=== PATIENT | male | born 1935 | race Caucasian/White ===

== ENCOUNTER 2023-09-08 12:21 | Emergency (ER) | payer MEDICARE, SELFPAY ==
[2023-09-08 12:38] VITALS: BP 113/54; PULSE 80; RESP 16; TEMP 36.8; O2SAT 98
--- NOTE | 2023-09-08 13:11 | ED.EAR ---
HPI - Ear Problem General Chief complaint: Ear Stated complaint: ear discomfort Time Seen by Provider: 09/08/23 13:00 Source: patient, RN notes reviewed and old records reviewed Mode of arrival: ambulatory Limitations: no limitations History of Present Illness HPI Narrative: 88-year-old male patient presents to [facility] with complaints of ears being called. Patient denies pain states she has can hear. MD Complaint: decreased hearing Related Data Home Medications Medication Instructions Recorded Confirmed acetaminophen 500 mg capsule 500 mg PO Q6H PRN 07/21/22 aspirin 81 mg tablet,delayed 81 mg PO DAILY 07/21/22 release (Adult Low Dose Aspirin) diphenhydramine HCl 25 mg tablet 25 mg PO QHS PRN 07/21/22 (Allergy Relief (diphenhydramine)) melatonin 5 mg capsule mg PO 07/21/22 methylcellulose (laxative) 500 mg 500 mg PO DAILY 07/21/22 tablet multivitamin (Daily Multi-Vitamin 1 tablet PO DAILY 07/21/22 tablet) Allergies Allergy/AdvReac Type Severity Reaction Status Date / Time No Known Allergies Allergy Verified 09/08/23 13:06 Review of Systems Constitutional: Constitutional: Reports no additional constitutional complaints Eyes: Eyes: Reports no additional eye complaints ENT: Reports as per HPI Comments: Ears blocked Cardiovascular: Cardiovascular: Reports no additional cardiovascular complaints Respiratory: Respiratory: Reports no additional respiratory complaints Neurologic: Reports system reviewed and no additional complaints, except as documented [facility] Past Medical History Medical History Allergies Arthritis BPH (benign prostatic hyperplasia) Diarrhea GERD (gastroesophageal reflux disease) Gout Hearing problem of both ears Hypertension Left shoulder pain Loss of hearing Osteoarthrosis Screening for prostate cancer Screening, lipid Surgical History Surgical History H/O colonoscopy 05/2022 H/O hernia repair Hx of tonsillectomy Family History Family History Father Cancer Mother Hypertension Cerebrovascular accident Social History Social History Smoking status: Never smoker Alcohol intake: never Substance use: never Living arrangements: with family Occupation/Education: retired Additional occupation/education comments: pharmacist Agree to blood products: Yes Comments At the time of my signature, I reviewed and agree with the nursing past medical, surgical, social, and family history. There is no relevant family history pertinent to the patient complaint. Exam Const: General: cooperative, healthy appearing, no acute distress and well nourished Nutritional Appearance: well nourished Orientation/consciousness: patient oriented x3 Limitations: no limitations HENMT: Head: normal to inspection and normocephalic Ears: external ears normal, TM's normal bilaterally, mastoids normal and Abnormal EAC present cerumen impaction ( left ear this cerumen impaction right ear clear) on the left Face/Nose/Sinus: normal facial exam Face and sinus: normal facial exam Mouth: Yes Normal oral and palatal mucosa present, Yes oropharynx normal and Yes moist mucous membranes Throat: posterior oropharynx normal, tonsils normal, uvula midline and no uvular edema Eyes: General: appearance normal, both eyes and all related structures Sclera: sclerae normal Pupils: Equal, round and reactive pupils present Resp: Effort & Inspection: normal respiratory effort, able to speak in complete sentences, no audible wheezes, no cough, no respiratory distress and no retractions Auscultation: clear to auscultation bilaterally, no crackles, no rales, no rhonchi and no wheezes Cardio: Rate: regular rate Rhythm: regular rhythm Skin: General
== END 2023-09-08 13:29 | disposition home or self-care (01) ==
PROVIDERS: Emergency Provider Registered Nurse; PCP Family Medicine
DX: H61.22 Impacted cerumen, left ear (principal); M19.90 Unspecified osteoarthritis, unspecified site; N40.0 Benign prostatic hyperplasia without lower urinary tract symptoms; K21.9 Gastro-esophageal reflux disease without esophagitis; M10.9 Gout, unspecified; I10 Essential (primary) hypertension; Z79.82 Long term (current) use of aspirin
CPT/HCPCS: 69209; 99212; G0463

== ENCOUNTER 2025-02-20 10:18 | Outpatient (CLI) | payer MEDICARE, SELFPAY ==
[2025-02-20 10:30] VITALS: PULSE 64; O2SAT 94
[2025-02-20 10:35] VITALS: PULSE 106; O2SAT 86
[2025-02-20 10:36] VITALS: PULSE 103; O2SAT 93
[2025-02-20 10:45] VITALS: PULSE 93; O2SAT 92
--- NOTE | 2025-02-20 11:58 | PCRCNOTE ---
Home O2 eval faxed to office, new o2 set up
--- NOTE | 2025-02-22 20:42 | P.PCNPFT_ITS ---
PFT Procedure Performed PFT Procedure Performed Spirometry with Pre/Post Bronchodilator Plethysmography (Lung Vol) Diffusing Cap (DLCO) Flow Vol Loop PFT Interpretation DOS: 02/20/2025 REQUESTING: Nydia Solorio PA-C REASON FOR TESTING: Cough, suspected COPD PULMONARY FUNCTION TESTS Results are reliable and reproducible. Repeatability of spirometry FEV1 maneuver pre and post bronchodilator is Grade A. Vani Cotton Dust reference equations were used. Spirometry: The pre-bronchodilator FEV1 is 1.38 L, 54%, reduced. The pre- bronchodilator FVC is 2.70 L, 77%, normal. The FEV1/FVC ratio is 51%, reduced, consistent with airflow obstruction. After bronchodilator, the FEV1 is 1.51 L, 59%, +9%. After bronchodilator, the FVC is 2.77 L, 79%, +2%. The FEV1/FVC ratio is 55%, reduced. Lung volumes: The total lung capacity is 5.38 L, 78%, normal range. The residual volume is 2.57 L, 93%, normal. The RV/TLC is 48%, normal. FRC is 3.50 L, 93%, normal. Airway resistance is increased. Diffusion: DLCO is 10.1, 47%, reduced. The DLCO/VA is 2.73, 80%, normal. Flow volume loop: The flow volume loop shows coving of the expiratory limb. IMPRESSION: Moderately severe obstructive ventilatory impairment without significant response to bronchodilator, normal lung volumes, decreased diffusion which corrects for alveolar volume. Lack of response to bronchodilator does not preclude use of clinically indicated. No prior studies for comparison. Erin Campbell MD
== END 2025-02-20 10:19 | disposition home or self-care (01) ==
PROVIDERS: PCP Nurse Practitioner Family; Visit Provider Physician Assistant
DX: R05.9 Cough, unspecified (principal); R94.2 Abnormal results of pulmonary function studies
CPT/HCPCS: 94060; 94618; 94726; 94729

== ENCOUNTER 2025-03-14 10:11 | Outpatient (CLI) | payer MEDICARE, SELFPAY ==
--- NOTE | ~2025-03-14 | CT_ITS ---
CT Scan of the Chest without Contrast: Clinical Indication: Shortness of breath Technique: Contiguous sections were acquired throughout the chest without intravenous contrast. Dose reduction technique was used on this scan by utilizing automated exposure control and iterative recon struction technique. The dose-length product (DLP) was 192.87 mGy-cm. Findings: There is no evidence of any significant mediastinal, hilar or axillary lymphadenopathy. Coronary ilya ry calcifications are present. There is no evidence of pleural or pericardial effusion. There is mild peripheral chronic interstitial disease in the lungs, with basilar predominance. 5 mm r ight upper lobe pulmonary nodule present (axial image 46). Additional 3 mm right upper lobe nodule pr esent (axial image 50). 8 mm nodule present in the peripheral left lower lobe adjacent to the fissure (axial image 58). 3 mm fissural nodule also noted (axial image 66). Images through the upper abdomen reveal no abnormalities. There is moderate degenerative spondylosis throughout the thoracic spine. Impression: Subcentimeter pulmonary nodules, as above, largest measuring 8 mm the left lower lobe. According to F leischner Society criteria, for a low-risk patient, recommend follow-up CT scan in 6-12 months, then consider additional 18-[address] For a high-risk patient, follow-up CT scans at both 6-12 months a nd 18-24 months are recommended. 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 Reviewed, dictated and finalized at [facility]. Impression: Subcentimeter pulmonary nodules, as above, largest measuring 8 mm the left lowe r lobe. According to Fleischner Society criteria, for a low-risk patient, recom mend follow-up CT scan in 6-12 months, then consider additional 18-[address] For a high-risk patient, follow-up CT scans at both 6-12 months and 18-24 marleny hs are recommended. 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
== END 2025-03-14 10:12 | disposition home or self-care (01) ==
PROVIDERS: PCP Nurse Practitioner Family; Visit Provider Physician Assistant
DX: R06.02 Shortness of breath (principal); J44.9 Chronic obstructive pulmonary disease, unspecified; R09.02 Hypoxemia; J84.9 Interstitial pulmonary disease, unspecified
CPT/HCPCS: 71250

== ENCOUNTER 2025-04-10 08:46 | Outpatient (CLI) | payer MEDICARE, SELFPAY ==
--- OUTSIDE RECORDS SUMMARY | 2025-04-10 08:57 | XMS_ITS | Clinical Summary ---
Author Organization [facility] Address [facility] [place] [address] Care Team Providers Care Outer Diameter Technician Name Role Phone Susanna Hung Primary Care Provider [phone] Allergies No known active allergies Medications levothyroxine 50 MCG tablet Take 50 mcg by mouth every morning. Active lisinopril 2.5 MG tablet Take 2.5 mg by mouth daily. Active allopurinol 300 MG tablet Take 300 mg by mouth daily. Active terazosin 2 MG capsule Take 2 mg by mouth nightly at bedtime. Active pantoprazole EC 40 MG tablet Take 40 mg by mouth daily. Active diphenhydrAMINE 25 MG capsule Take 25 mg by mouth every 6 (six) hours as needed for Itching. Active acetaminophen 500 MG tablet Take 500 mg by mouth nightly at bedtime. Active melatonin 5 MG tablet Take 5 mg by mouth nightly at bedtime. Active multi vitamin/mineral s tablet Take 1 tablet by mouth daily. Active polycarbophil (FIBER) 625 MG tablet Take 625 mg by mouth daily. 2 every a.m. Active aspirin EC 81 MG tablet Take 81 mg by mouth daily. Active celecoxib 200 MG capsule Take 200 mg by mouth daily. Active polyethylene glycol (GOLYTELY) 236 g solutionIndicat ions:Chronic diarrhea 4 liters to be taken by mouth as directed for bowel prep. 4000 mL 09/11/2021 Active Active Problems Problem Noted Date Diagnosed Date Pharyngoesophageal dysphagia 09/09/2021 Overview (09/09/2021): Added automatically from request for surgery [id number] Chronic diarrhea 09/09/2021 Overview (09/09/2021): Added automatically from request for surgery [id number] GERD (gastroesophageal reflux disease) Overview (09/09/2021): Added automatically from request for surgery [id number] Family history of colon cancer 09/09/2021 Overview (09/09/2021): Added automatically from request for surgery [id number] Encounters Date Type Department Care Team Description 03/13/2025 2:30 PM CDT Office Visit [facility] [address] [place] [address] Kerri Wasserman AUD Hearing Aid Check 03/13/2025 Travel from Last 3 Months Family History Medical History Relation Comments No Known Problems Brother Pancreas Disease Father No Known Problems Maternal Aunt No Known Problems Maternal Grandfather No Known Problems Maternal Grandmother No Known Problems Maternal Uncle Hypertension Mother Stroke Mother No Known Problems Paternal Aunt No Known Problems Paternal Grandfather No Known Problems Paternal Grandmother Heart Attack Paternal Uncle No Known Problems Sister Relation Status Comments Brother Father Maternal Aunt Maternal Grandfather Maternal Grandmother Maternal Uncle Mother Paternal Aunt Paternal Grandfather Paternal Grandmother Paternal Uncle Sister Social History Tobacco Use Types Packs/Day Years Used Date Smoking Tobacco: Never Smokeless Tobacco: Never Tobacco Cessation:Counseling Given: No Alcohol Use Standard Drinks/Week Comments Not Currently 0 (1 standard drink = 0.6 oz pur e alcohol) quit 1974 PHQ-2 Answer Date Recorded PHQ-2 Score - If the patient scores above 3, please move on to questions 3-9 0 09/09/2021 Sex and Gender Information Value Date Recorded Sex Assigned at Not on file Legal Sex Male 7:31 PM CDT Gender Identity Male 09/07/2021 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 Sexual Orientation Straight 09/07/2021 1: 29 PM GAS OPERATION MANAGER Last Filed Vital Signs Vital Sign Reading Time Taken Comments Blood Pressure 126/68 10/01/2021 8:45 AM GAS OPERATION MANAGER Pulse 70 10/01/2021 8:37 AM GAS OPERATION MANAGER Temperature 37.4 C (99.3 F) 10/01/2021 7:05 AM GAS OPERATION MANAGER Respiratory Rate 20 10/01/2021 8:37 AM GAS OPERATION MANAGER Oxygen Saturation 97% 10/01/2021 8:45 AM GAS OPERATION MANAGER Inhaled Oxygen Concentration - - Weight 71.7 kg (158 lb) 09/22/2021 10:42 AM GAS OPERATION MANAGER Height 167.6 cm (5' 6) 09/22/2021 10:42 AM GAS OPERATION MANAGER Body Mass Index 25.5 09/22/2021 10:42 AM GAS OPERATION MANAGER Plan of Treatment Health Maintenance Due Date Last Done Comments DTaP, Tdap and Td Vaccines ( 1 - Tdap) 02[birth year]08/1954 Pneumococcal Vaccine: 50+ Years (1 of 1 - PCV) 1987 Zoster Vaccines (1 of 2) 1987 Annual Medicare Wellness Visit 2002 RSV Immunization or 60+ Years (1 - 1-dose 75+ series) 02/08/2012 COVID-19 Vaccine (3 - 2023-2 5 season) 2024 12/03/2020, 11/05/2020 Meningococcal B Vaccine Aged Out No l onger eligible based on patient's age to complete this topic Meningococcal Vaccine Aged Out No sandra ivan eligible based on patient's age to complete this topic RSV Immunizations Under 20 Months Aged Out No longer eligible b ased on patient's age to complete this topic Insurance [facility] Care Teams Outer Diameter Technician Relationship Specialty Start Date End Date Susanna Hung FNP [address] [place] [address] [place] [address] PCP - General Nurse Practitioner Family 09/06/24
--- OUTSIDE RECORDS SUMMARY | 2025-04-10 08:57 | XMS_ITS | Encounter Summary ---
Author Organization [facility] Address [address] [place] [address] Care Team Providers Care Vice Principal Name Role Phone Chelsi Blanco Primary Care Provider Brayan Lawler MD Primary Care Provider [phone] Susanna Hung Primary Care Provider [phone] Encounter Details Date Type Department Care Team (Late st Contact Info) Description 11/30/2014 Abstract [facility] CONVERSION [address] [place], [place] [id number] , Generic Conversion, Social History Tobacco Use Types Packs/Day Years Used Date Smoking Tobacco: Never Assessed Sex and Gender Information Value Date Recorded Sex Assigned at Not on file Legal Sex Male 7:31 PM CDT Gender Identity Male 09/07/2021 1:29 PM TANKER SERVICE ATTENDANT Sexual Orientation Straight 09/07/2021 1: 29 PM TANKER SERVICE ATTENDANT documented as of this encounter Plan of Treatment Not on file documented as of this encounter Visit Diagnoses Not on filedocumented in this encounter Care Teams Vice Principal Relationship Specialty Start Date End Date Chelsi Blanco AUD PCP - General AUDIOLOGY 05/05/19 08/30/23 Brayan Green MD [address] [place] [id number] PCP - General FAMILY PRACTICE 08/31/23 09/05/24 Susanna Hung FNP [address] [place] [address] PCP - General Nurse Practitioner Family 09/06/24 documented as of this encounter
--- OUTSIDE RECORDS SUMMARY | 2025-04-10 08:57 | XMS_ITS | Encounter Summary ---
Author Organization [facility] Address [address] [place] [address] Care Team Providers Care Leather Softener Name Role Phone Chelsi Blanco Primary Care Provider Brayan Lawler MD Primary Care Provider [phone] Susanna Hung Primary Care Provider [phone] Encounter Details Date Type Department Care Team (Late st Contact Info) Description 10/24/2015 Abstract 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 Sexual Orientation Straight 09/07/2021 1: 29 PM ASSEMBLER MOTOR VEHICLE documented as of this encounter Plan of Treatment Not on file documented as of this encounter Visit Diagnoses Not on filedocumented in this encounter Care Teams Leather Softener Relationship Specialty Start Date End Date Chelsi Blanco AUD PCP - General AUDIOLOGY 05/05/19 08/30/23 Brayan Green MD [address] [place] [id number] PCP - General FAMILY PRACTICE 08/31/23 09/05/24 Susanna Hung FNP [address] [place] [address] PCP - General Nurse Practitioner Family 09/06/24 documented as of this encounter
--- NOTE | 2025-04-10 09:06 | ECHO_ITS ---
Patient Info Name: Mateo De La Rosa Age: 89 years : 1935 Gender: Male Ht: 69 in Wt: 159 lbs BSA: 1.88 m2 HR: 57 bpm BP: 147 / 79 mmHg Technical Quality: Good Exam Date: 04/10/2025 9:18 AM Patient Status: O Admit Date: 04/10/2025 Exam Type: CA echo doppler color flow Complete two-dimensional, color flow and Doppler transthoracic echocardiogram is performed. Histology Tech: Renetta Martin Attending Provider: Nydia RUBIN Summary 1. Complete two-dimensional, color flow and Doppler transthoracic echocardiogram is performed. 2. Left ventricular chamber dimension is normal. 3. Left ventricular systolic function is normal, estimated at 60-65. 4. The left ventricular diastolic function is grade I diastolic dysfunction. 5. E/e' 12 is mildly elevated. 6. There is mild aortic valve sclerosis. 7. The mitral valve has a moderately calcified annulus. 8. There is mild mitral valve regurgitation. 9. There is mild tricuspid valve regurgitation. 10. Mild pulmonary hypertension, estimated pulmonary arterial systolic pressure is 42 mmHg. Left Ventricle E/e' 12 is mildly elevated. Left ventricular chamber dimension is normal. Left ventricular systolic function is normal, estimated at 60-65. The left ventricular diastolic function is grade I diastolic dysfunction. Right Ventricle Right ventricular chamber dimension is normal. Right ventricular systolic function is normal and with normal TAPSE 1.8 cm. Left Atria Left atrial chamber dimension is normal. Right Atria Right atrial chamber dimension is normal. Aortic Valve The aortic valve is trileaflet. There is mild aortic valve sclerosis. There is no aortic valve stenosis. There is no aortic valve regurgitation. Pulmonic Valve There is no pulmonic regurgitation. Mitral Valve The mitral valve has a moderately calcified annulus. There is no mitral valve stenosis. There is mild mitral valve regurgitation. Tricuspid Valve There is mild tricuspid valve regurgitation. Mild pulmonary hypertension, estimated pulmonary arterial systolic pressure is 42 mmHg. Pericardium/Pleural There is no pericardial effusion. Inferior Vena Cava Normal inferior vena cava with >50% collapse upon inspiration consistent with normal right atrial pressure, 5 mmHg. Aorta The aortic root size at the sinus of Valsalva is normal. Left Ventricular Outflow Tract Name Value Normal LVOT 2D LVOT Diameter 2.0 cm LVOT Doppler LVOT Peak Velocity 168 cm/s LVOT Peak Gradient 11 mmHg LVOT Mean Gradient 6 mmHg LVOT VTI 39 cm LVOT Stroke Volume 120 ml LVOT CO 6.8 l/min LVOT CI 3.6 l/min/m2 Pulmonic Valve Name Value Normal RVOT Doppler RVOT Peak Velocity 67 cm/s RVOT Peak Gradient 2 mmHg PV Doppler PV Peak Velocity 95 cm/s PV Peak Gradient 4 mmHg Mitral Valve Name Value Normal MV Diastolic Function MV E Peak Velocity 91 cm/s MV A Peak Velocity 135 cm/s MV E/A 0.7 MV Decel Time (PW) 300 ms MV Annular TDI MV E/e' (Septal) 15.2 MV E/e' (Lateral) 11.2 MV E/e' (Average) 13.2 Tricuspid Valve Name Value Normal TV Regurgitation Doppler TR Peak Velocity 304 cm/s TR Peak Gradient 31 mmHg Estimated PAP/RSVP RA Pressure 5 mmHg <=5 PA Systolic Pressure 42 mmHg <36 RV Systolic Pressure 42 mmHg <36 Aortic Valve Name Value Normal AV Doppler AV Peak Velocity 194 cm/s AV Peak Gradient 15 mmHg AV Area (Cont Eq Cesar) 2.7 cm2 AV DI (Cesar) 0.87 AV Regurgitation 2D LVOT Area 3.1 cm2 Ventricles Name Value Normal LV Dimensions 2D/MM IVS Diastolic Thickness (2D) 1.1 cm 0.6-1.0 LVID Diastole (2D) 3.6 cm 4.2-5.8 LVIW Diastolic Thickness (2D) 1.0 cm 0.6-1.0 LVID Systole (2D) 2.4 cm 2.5-4.0 LVOT Diameter 2.0 cm LV Mass (2D Cubed) 111.29 g 88.00-224.00 LV Mass Index (2D Cubed) 59 g/m2 49-115 Relative Wall Thickness (2D) 0.54 <=0.42 LV Fractional Shortening/Ejection Fraction 2D/MM LV Fractional Shortening (2D) 34 % 25-43 LV EF (2D Teichholz) 64 % LV Diastolic Volume (4C MOD) 87 ml LV EF (4C MOD) 55 % LV Diastolic Volume (2C MOD) 93 ml LV EF (2C MOD) 60 % LV Diastolic Volume (BP MOD) 92 ml 62-150 LV Diastolic Volume Index (BP MOD) 49 ml/m2 34-74 LV Systolic Volume (BP MOD) 38 ml 21-61 LV Systolic Volume Index (BP MOD) 20 ml/m2 11-31 LV EF (BP MOD) 59 % 52-72 LV Diastolic Length (4C) 8.1 cm LV Systolic Length (4C) 6.8 cm LV Stroke Volume (4C MOD) 48 ml RV Dimensions 2D/MM TAPSE 1.8 cm >=1.7 Atria Name Value Normal LA Dimensions LA Volume (4C A-L) 44 ml LA Volume (BP A-L) 47 ml RA Dimensions RA Systolic Major Strum Length (4C) 6.3 cm 2.1-2.7 RA Area (4C) 17.5 cm2 <=18.0 Report Signatures
== END 2025-04-10 08:47 | disposition home or self-care (01) ==
PROVIDERS: PCP Nurse Practitioner Family; Visit Provider Physician Assistant
DX: I35.8 Other nonrheumatic aortic valve disorders (principal); I08.1 Rheumatic disorders of both mitral and tricuspid valves; I27.20 Pulmonary hypertension, unspecified; J44.9 Chronic obstructive pulmonary disease, unspecified; R09.02 Hypoxemia
CPT/HCPCS: 93306